=== PATIENT | male | born 1995 | race Hispanic/Latino ===

== ENCOUNTER 2021-06-01 17:53 | Emergency (ER) | payer BC, OTHER, SELFPAY ==
[2021-06-01] MEDS ORDERED: IBUPROFEN 400 MG TAB ONE (18:30)
[2021-06-01 19:31] LABS: SARS-COV-2 RT PCR NEGATIVE (NEGATIVE)
--- NOTE | 2021-06-01 19:36 | RAD REPORT ---
EXAM DESCRIPTION: RAD - Chest Single View - 06/01/2021 7:11 pm CLINICAL HISTORY: COUGH COMPARISON: None TECHNIQUE: AP portable chest image was obtained 06/01/2021 7:11 pm . FINDINGS: Lungs are clear. Heart and vasculature are normal. No measurable pleural effusion and no p neumothorax. No acute bony abnormality seen. No acute aortic findings suspected. IMPRESSION: No acute cardiopulmonary process.
--- NOTE | 2021-06-01 19:52 | EDPHYS ---
Physician Documentation [facility] Name: Cristóbal Hernandez Age: 25 yrs Sex: Male : 1995 Arrival Date: 06/01/2021 Time: 17:56 Bed 11 Private MD: ED Physician Migue Owens HPI: 06/01 18:24 This 25 yrs old Male presents to ER via Ambulatory with complaints of Flu rn Symptoms, Cough - blood. 18:25 The patient or guardian reports cough, flu symptoms, low-grade fever, myalgias. Onset: rn The symptoms/episode began/occurred yesterday. Severity of symptoms: At their worst the symptoms were mild, in the emergency department the symptoms are unchanged. Modifying factors: The symptoms are alleviated by nothing, the symptoms are aggravated by nothing. Associated signs and symptoms: Pertinent positives: fever, rhinorrhea, sore throat. 18:25 The patient has not experienced similar symptoms in the past. The patient has not rn recently seen a physician. Reports 2 days of fever, cough, noticed some blood in sputum today. . Historical: - Allergies: 18:05 No Known Allergies; ap3 - Home Meds: 18:05 None [Active]; ap3 - PMHx: 18:05 None; ap3 - Immunization history:: Client reports having NOT received the Covid vaccine. Flu vaccine is not up to date. - Social history:: Smoking status: Patient reports the use of cigarette tobacco products, smokes one pack cigarettes per day. Patient uses alcohol, admits to "couple of beers" a day. - Family history:: not pertinent. - Hospitalizations: : No recent hospitalization is reported. ROS: 18:25 Constitutional: + fever and chills Eyes: Negative for injury, pain, redness, and advisory internship, ENT: + sore throat and congestion Neck: Negative for injury, pain, and swelling, Cardiovascular: Negative for chest pain, palpitations, and edema, Respiratory: + cough Abdomen/GI: Negative for abdominal pain, nausea, vomiting, diarrhea, and constipation, MS/Extremity: Negative for injury and deformity, Skin: Negative for injury, rash, and discoloration, Neuro: Negative for numbness, tingling, and seizure. Exam: 18:25 Constitutional: This is a well developed, well nourished patient who is awake, alert, rn and in no acute distress. Head/Face: Normocephalic, atraumatic. Eyes: Periorbital areas with no swelling, redness, or edema. ENT: dry MM, no stridor Neck: Trachea midline, + anterior cervical nontender LAD Cardiovascular: Regular rate and rhythm. No pulse deficits. Respiratory: Speaking full sentences, unlabored. No increased work of breathing, no retractions or nasal flaring. Skin: Warm, dry MS/ Extremity: Pulses equal, no cyanosis. Neuro: Awake and alert, GCS 15 Vital Signs: 18:04 BP 128 / 81; Pulse 101; Resp 16; Temp 99.1; Pulse Ox 99% ; Weight 63.5 kg; Height 5 ft. ap3 2 in. (157.48 cm); 20:08 BP 132 / 80; Pulse 65; Resp 16; Pulse Ox 100% on R/A; Pain 0/10; st1 18:04 Body Mass Index 25.61 (63.50 kg, 157.48 cm) ap3 MDM: 18:18 Patient medically screened. rn 19:54 Data reviewed: vital signs, nurses notes, lab test result(s), radiologic studies. kdr Counseling: I had a detailed discussion with the patient and/or guardian regarding: the historical points, exam findings, and any diagnostic results supporting the discharge/admit diagnosis, lab results, radiology results, the need for outpatient follow up. 06/01 18:08 Order name: COVID-19/FLU A+B (Document "Date of Onset" if Symptomatic) ap3 06/01 18:08 Order name: COVID-19/FLU A+B; Complete Time: 19:39 EDMS 06/01 18:17 Order name: XRAY Chest (1 view); Complete Time: 19:39 rn 06/01 18:25 Order name: Strep; Complete Time: 19:39 rn Administered Medications: 18:30 Drug: Motrin (ibuprofen) 800 mg Route: PO; Disposition Summary: 06/01/21 19:51 Discharge Ordered Location: Home kdr Problem: new kdr Symptoms: have improved kdr Condition: Stable kdr Diagnosis - Influenza due to identified novel influenza A virus kdr - Streptococcal pharyngitis kdr Followup: kdr - With: Private Physician - When: 2 - 3 days - Reason: If symptoms return, Further diagnostic work-up, Recheck today's complaints, Continuance of care, Re-evaluation by your physician Discharge Instructions: - Discharge Summary Sheet kdr - Strep Throat, Adult, [id number] kdr - Influenza, Adult, [id number] kdr Forms: - Medication Reconciliation Form kdr - Thank You Letter kdr - Antibiotic Education kdr Prescriptions: - Amoxicillin 500 mg Oral Capsule - take 1 capsule by ORAL route every 8 hours for 10 days; 30 tablet; Refills: 0, kdr Product Selection Permitted - Ibuprofen 800 mg Oral Tablet - take 1 tablet by ORAL route every 8 hours As needed take with food; 30 tablet; kdr Refills: 0, Product Selection Permitted - Tamiflu 6 mg/mL Oral Suspension for Reconstitution - take 7.5 milliliters by ORAL route every 12 hours for 5 days; 120 milliliter; kdr Refills: 0, Product Selection Permitted Signatures: Dispatcher [employer] Migue Verma MD MD kdr Nieto, Roman, MD MD rn Prokisch, Amanda, RN RN ap3 Heaven Fitzpatrick RN RN ww
--- NOTE | 2021-06-01 19:52 | ER ---
Nurse's Notes [facility] Name: Cristóbal Hernandez Age: 25 yrs Sex: Male : 1995 Arrival Date: 06/01/2021 Time: 17:56 Bed 11 Private MD: Diagnosis: Influenza due to identified novel influenza A virus;Streptococcal pharyngitis Presentation: 06/01 18:04 Chief complaint: Patient states: he has been having body aches and flu-like symptoms ap3 since yesterday. Patient reports coughing up blood this morning. Coronavirus screen: chills, congestion, cough unrelated to allergies, muscle pain, Client presents with at least one sign or symptom that may indicate coronavirus-19. Standard/surgical mask placed on the client. Provider contacted for isolation considerations. Ebola Screen: No symptoms or risks identified at this time. Initial Sepsis Screen: Does the patient meet any 2 criteria? HR > 90 bpm. Does the patient have a suspected source of infection? No. Patient's initial sepsis screen is negative. Risk Assessment: Do you want to hurt yourself or someone else? Patient reports no desire to harm self or others. Onset of symptoms was May 31, 2021. 18:04 Method Of Arrival: Ambulatory ap3 18:04 Acuity: LAUREN 4 ap3 Triage Assessment: 18:06 General: Appears uncomfortable, Behavior is calm, cooperative. Pain: Complains of pain ap3 in generalized aches and pains Pain currently is 7 out of 10 on a pain scale. Neuro: Level of Consciousness is awake, alert, obeys commands, Oriented to person, place, time, situation, Appropriate for age Miller Supervisor are equal bilaterally Moves all extremities. Gait is steady, Speech is normal. Respiratory: Airway is patent Respiratory effort is even, unlabored, Respiratory pattern is regular, symmetrical. Historical: - Allergies: 18:05 No Known Allergies; ap3 - Home Meds: 18:05 None [Active]; ap3 - PMHx: 18:05 None; ap3 - Immunization history:: Client reports having NOT received the Covid vaccine. Flu vaccine is not up to date. - Social history:: Smoking status: Patient reports the use of cigarette tobacco products, smokes one pack cigarettes per day. Patient uses alcohol, admits to "couple of beers" a day. - Family history:: not pertinent. - Hospitalizations: : No recent hospitalization is reported. Screenin:07 Abuse screen: Denies threats or abuse. Nutritional screening: No deficits noted. ap3 Tuberculosis screening: No symptoms or risk factors identified. 18:33 Fall Risk None identified. ww Assessment: 18:33 General: Appears in no apparent distress. Behavior is calm, cooperative. Neuro: Level ww of Consciousness is awake, alert, obeys commands, Oriented to person, place, time, situation, Moves all extremities. Speech is normal. Cardiovascular: Denies chest pain, Capillary refill < 3 seconds Patient's skin is warm and dry. Respiratory: Reports cough that is Airway is patent Respiratory effort is even, unlabored, Respiratory pattern is regular, symmetrical. GI: No signs and/or symptoms were reported involving the gastrointestinal system. : No signs and/or symptoms were reported regarding the genitourinary system. EENT: Nares with drainage noted Throat is reddened Reports nasal congestion. Derm: No signs and/or symptoms reported regarding the dermatologic system. Skin is intact, is healthy with good turgor, Skin is pink, warm \\T\\ dry. Musculoskeletal: No signs and/or symptoms reported regarding the musculoskeletal system. Vital Signs: 18:04 BP 128 / 81; Pulse 101; Resp 16; Temp 99.1; Pulse Ox 99% ; Weight 63.5 kg; Height 5 ft. ap3 2 in. (157.48 cm); 20:08 BP 132 / 80; Pulse 65; Resp 16; Pulse Ox 100% on R/A; Pain 0/10; st1 18:04 Body Mass Index 25.61 (63.50 kg, 157.48 cm) ap3 ED Course: 17:56 Patient arrived in ED. as 18:05 Triage completed. ap3 18:07 Arm band placed on right wrist. ap3 18:18 Damon Waters MD is Attending Physician. rn 18:22 COVID-19/FLU A+B (Document "Date of Onset" if Symptomatic) Sent. ww 18:33 Patient has correct armband on for positive identification. Bed in low position. Call ww light in reach. 18:33 Strep swab sent to lab. ww 19:11 XRAY Chest (1 view) In Process Unspecified. EDMS 19:39 Attending Physician role handed off by Damon Waters MD kdr 19:39 Migue Owens MD is Attending Physician. kdr 19:42 Yomaira Cantu, RN is Primary Nurse. st1 20:08 No provider procedures requiring assistance completed. st1 20:08 Patient did not have IV access during this emergency room visit. st1 Administered Medications: 18:30 Drug: Motrin (ibuprofen) 800 mg Route: PO; ww Outcome: 19:51 Discharge ordered by . kdr 20:08 Discharged to home ambulatory. st1 20:08 Condition: good 20:08 Discharge instructions given to patient, Instructed on discharge instructions, follow up and referral plans. no drinking with medication, Demonstrated understanding of instructions, Prescriptions given X 3. 20:09 Patient left the ED. st1 Signatures: Dispatcher [employer] EDMS Migue Owens MD MD kdr Martinez, Amelia as Nieto, Roman, MD MD rn Selena Alexis RN RN Heaven Lombardo RN RN Yomaira Winston, SERGEY RN st1
[2021-06-01 20:16] VITALS: TEMP 99.1
[2021-06-01 20:17] VITALS: BP 132/80; O2SAT 100
== END 2021-06-01 20:09 | disposition home or self-care (01) ==
LOC: ER 17:53
DX: J10.1 Influenza due to other identified influenza virus with other respiratory manifestations (principal); J02.0 Streptococcal pharyngitis; Z20.822 Contact with and (suspected) exposure to COVID-19; F17.210 Nicotine dependence, cigarettes, uncomplicated
CPT/HCPCS: 87081; 0240U; 71045; 99284